=== PATIENT | female | born 1980 | race Caucasian/White ===

== ENCOUNTER 2019-02-15 22:07 | Inpatient (IN) | payer MEDICAID ==
[2019-02-15] MEDS ORDERED: LACTATED RINGER'S 1,000 ML IV (22:53)
[2019-02-15] MEDS ORDERED: METHYLERGONOVINE 0.2 MG INJ IM (23:00)
[2019-02-15] MEDS ORDERED: CARBOPROST 250 MCG INJ IM (23:00)
[2019-02-15] MEDS ORDERED: OXYTOCIN 30 UNITS/LR 500 ML IV (23:00)
[2019-02-15] MEDS ORDERED: MISOPROSTOL 200 MCG TAB PR (23:00)
[2019-02-16] MEDS: LACTATED RINGER'S 1,000 ML IV (00:06)
[2019-02-16 00:10] LABS: ADD MAN DIFF? NO
[2019-02-16 00:16] LABS: WHITE BLOOD COUNT 9.9 10^3/ul (4.8-10.8)
[2019-02-16 00:16] LABS: BASOPHILS % 0.4 % (0.0-2.0); EOSINOPHILS # 0.1 10^3/ul (0.0-0.5); EOSINOPHILS % 0.6 % (0.0-7.0); HEMATOCRIT 42.1 % (37.0-47.0); HEMOGLOBIN 14.3 g/dl (12.0-16.0); LYMPHOCYTES # 1.8 10^3/ul (0.8-2.9); MEAN CORPUSCULAR HEMOGLOBIN 30.4 pg (29.0-33.0); MEAN CORPUSCULAR VOLUME 89.6 fl (82.0-101.0); MEAN PLATELET VOLUME 11.7 fl (7.4-10.4); MONOCYTE # 0.7 10^3/ul (0.3-0.9); MONOCYTES % 7.5 % (0.0-11.0); NEUTROPHIL # 7.2 10^3/ul (1.6-7.5); NEUTROPHILS % 72.8 % (39.0-77.0); PLATELET COUNT 186 10^3/UL (140-415); RED CELL DISTRIBUTION WIDTH 13.5 % (11.5-14.5)
[2019-02-16] MEDS: BUTORPHANOL 2 MG INJ IV ×2 (00:16→04:26)
[2019-02-16 00:21] LABS: ADD UMIC YES; UR ASCORBIC ACID NEGATIVE (NEGATIVE); UR BACTERIA FEW /HPF (NONE SEEN); UR BILIRUBIN (Dip) NEGATIVE (NEGATIVE); UR BLOOD (Dip) NEGATIVE (NEGATIVE); UR CLARITY CLEAR (CLEAR); UR COLOR YELLOW (YELLOW); UR GLUCOSE (Dip) NEGATIVE (NEGATIVE); UR KETONES (Dip) NEGATIVE (NEGATIVE); UR LEUKOCYTE ESTERASE (Dip) 2+ Leu/ul (NEGATIVE); UR NITRITE (Dip) NEGATIVE (NEGATIVE); UR RBC 1 /HPF (0-5); UR SPECIFIC GRAVITY (Dip) 1.008 (1.003-1.030); UR SQUAMOUS EPITHELIAL CELL FEW /HPF (FEW); UR TOTAL PROTEIN (Dip) NEGATIVE (NEGATIVE); UR UROBILINOGEN (Dip) NEGATIVE (NEGATIVE); UR WBC 1 /HPF (0-5)
[2019-02-16 00:48] LABS: INR 0.92; PROTIME 12.5 Sec (11.9-14.9)
[2019-02-16 00:49] LABS: PARTIAL THROMBOPLASTIN TIME 28.6 Sec (23.0-35.0)
[2019-02-16 01:06] LABS: HEPATITIS B SURFACE ANTIGEN NEGATIVE (NEGATIVE)
[2019-02-16] MEDS: OXYTOCIN 30 UNITS/LR 500 ML IV ×4 (06:22→10:55)
[2019-02-16] MEDS: IBUPROFEN 600 MG TAB PO ×5 (06:40→23:38)
[2019-02-16] MEDS: MINERAL OIL LIGHT 10 ML VIAL TOP (06:41)
[2019-02-16] MEDS: LIDOCAINE 1% (MPF) 30 ML INJ INJ (06:42)
[2019-02-16] MEDS ORDERED: CARBOPROST 250 MCG INJ IM (07:00)
[2019-02-16] MEDS ORDERED: METHYLERGONOVINE 0.2 MG INJ IM (07:00)
[2019-02-16] MEDS ORDERED: OXYTOCIN 30 UNITS/LR 500 ML IV (07:00)
[2019-02-16] MEDS ORDERED: WITCH HAZEL/GLYCERIN PAD PR (07:00)
[2019-02-16] MEDS ORDERED: ONDANSETRON 4 MG INJ IV (07:00)
[2019-02-16] MEDS ORDERED: DIPHENHYDRAMINE 25 MG CAP PO (07:00)
[2019-02-16] MEDS ORDERED: NACL 0.9% 3 ML SYG IV (07:00)
[2019-02-16] MEDS ORDERED: LANOLIN HPA 1 PKT TOP (07:00)
[2019-02-16] MEDS ORDERED: ZOLPIDEM 5 MG TAB PO (07:00)
[2019-02-16] MEDS ORDERED: MISOPROSTOL 200 MCG TAB PR (07:00)
[2019-02-16 08:40] LABS: HEMATOCRIT 38.8 % (37.0-47.0); HEMOGLOBIN 12.8 g/dl (12.0-16.0)
[2019-02-16] MEDS: SENNA/DOCUSATE NA (8.6MG/50MG) TAB PO ×2 (09:52→23:38)
[2019-02-16] MEDS: HYDROCODONE/APAP (5/325) TAB PO (09:52)
[2019-02-16 22:43] LABS: RAPID PLASMA REAGIN NONREACTIVE (NR)
[2019-02-17] MEDS: IBUPROFEN 600 MG TAB PO ×3 (06:02→17:38)
[2019-02-17] MEDS: SENNA/DOCUSATE NA (8.6MG/50MG) TAB PO ×2 (08:50→21:36)
[2019-02-18] MEDS: IBUPROFEN 600 MG TAB PO ×3 (00:44→12:15)
[2019-02-18] MEDS: SENNA/DOCUSATE NA (8.6MG/50MG) TAB PO (08:35)
[2019-02-18] MEDS: VARICELLA VACCINE LIVE/PF 1,350 UNIT/0.5 ML ML SC* (09:00)
[2019-02-18] MEDS: MEASLES,MUMPS,RUBELLA VACCINE INJ SC* (09:00)
[2019-02-18] MEDS: DIPHTH/TET/ACEL PERTUSS (ADULT) 0.5 ML VIAL IM* (09:00)
== END 2019-02-18 16:32 | disposition home or self-care (01) | DRG 807 ==
LOC: OBT 22:07 → L-D 22:07 → PP1 02-16 16:00 → OBT 22:50 → L-D 22:50
PROC: 10E0XZZ Delivery of Products of Conception, External Approach (ICD-10-PCS; principal; 2019-02-15)
PROC: 0HQ9XZZ Repair Perineum Skin, External Approach (ICD-10-PCS; 2019-02-15)
DX: O70.0 First degree perineal laceration during delivery (principal); Z37.0 Single live birth; O69.81X0 Labor and delivery complicated by cord around neck, without compression, not applicable or unspecified; Z3A.40 40 weeks gestation of pregnancy; Z83.2 Family history of diseases of the blood and blood-forming organs and certain disorders involving the immune mechanism
CPT/HCPCS: 81001; 85014; 85018; 85025; 85610; 85730; 86592; 86850; 86900; 86901; 87340; 90716